=== PATIENT | male | born 1945 | race Caucasian/White ===

== ENCOUNTER 2020-06-21 20:01 | Inpatient (IN) | payer MEDICARE, OTHER ==
[2020-06-21 20:38] LABS: BASOPHILS % (AUTO) 0.2 %; EOSINOPHILS # (AUTO) 0.2 10^3/uL (0.0-0.7); EOSINOPHILS % (AUTO) 0.9 %; HCT - HEMATOCRIT 44.2 % (42.0-52.0); HGB - HEMOGLOBIN 14.8 g/dL (14.0-18.0); LYMPHOCYTES # (AUTO) 0.5 10^3/uL (1.5-3.5); LYMPHOCYTES % (AUTO) 3.3 %; MEAN CORPUSCULAR HGB CONC 33.5 g/dL (32.0-36.0); MEAN CORPUSCULAR VOLUME 95.5 fL (80.0-94.0); MEAN PLATELET VOLUME 10.7 fL (7.4-11.4); MONOCYTES # (AUTO) 1.3 10^3/uL (0.0-1.0); MONOCYTES % (AUTO) 8.1 %; NEUTROPHILS # (AUTO) 14.2 10^3/uL (1.5-6.6); NEUTROPHILS % (AUTO) 87.1 %; PLT - PLATELET COUNT 160 10^3/uL (130-450); RED BLOOD COUNT 4.63 10^6/uL (4.70-6.10); RED CELL DISTRIBUTION WIDTH 11.7 % (12.0-15.0); WHITE BLOOD COUNT 16.3 x10^3/uL (4.8-10.8)
[2020-06-21] MEDS ORDERED: IOVERSOL 320 100 ML VIAL IVP ONE (20:44)
[2020-06-21 20:47] LABS: BILIRUBIN,URINE NEGATIVE (NEGATIVE); GLUCOSE, URINE (UA) NEGATIVE (NEGATIVE); KETONES,URINE (UA) 40 mg/dL (NEGATIVE); LEUKOCYTE ESTERASE, URINE NEGATIVE (NEGATIVE); NITRITE,URINE NEGATIVE (NEGATIVE); OCCULT BLOOD,URINE TRACE-INTA (NEGATIVE); PROTEIN,URINE NEGATIVE (NEGATIVE); UROBILINOGEN,URINE 0.2 (NORMAL) E.U./dL (NORMAL)
[2020-06-21 20:48] LABS: CLARITY,URINE CLEAR (CLEAR)
[2020-06-21 20:50] LABS: ALBUMIN 4.4 g/dL (3.2-5.5); ALBUMIN/GLOBULIN RATIO 1.7 (1.0-2.2); BILIRUBIN,TOTAL 1.1 mg/dL (0.2-1.0); CALCIUM 9.1 mg/dL (8.5-10.3); CREATININE 0.7 mg/dL (0.6-1.2); POTASSIUM 3.8 mmol/L (3.5-5.0)
--- NOTE | 2020-06-21 21:05 | ED Physician Documentation ---
History of Present Illness - Stated complaint Stated Complaint: RIGHT SIDE PX - Chief complaint Chief Complaint: Abd Pain - History obtained from History obtained from: Patient - History of Present Illness Timing: Other (intermittent for several weeks.) Pain level max: 8 Pain level now: 6 - Additonal information Additional information: 75-year-old male presents to the emergency department with intermittent right lower quadrant pain for the past year. He states it has become more painful over the past several days. He does not see a doctor. The pain used to come and go, but is now constant. Nothing makes it better or worse. No fevers. No chills. No nausea or vomiting. Does not have a primary care doctor and does not see doctors often. No diarrhea. No constipation. Review of Systems Ten Systems: 10 systems reviewed and negative Constitutional: denies: Fever, Chills Cardiac: denies: Chest pain / pressure Respiratory: denies: Cough GI: denies: Vomiting, Diarrhea, Hematemesis : denies: Dysuria, Frequency, Hesitancy Skin: denies: Rash Musculoskeletal: denies: Neck pain, Back pain Neurologic: denies: Headache PD PAST MEDICAL HISTORY - Past Medical History Past Medical History: Yes Cardiovascular: None Respiratory: None Neuro: None Endocrine/Autoimmune: None GI: None : Retention, Indwelling catheter HEENT: None Psych: None Musculoskeletal: None Derm: None - Past Surgical History Past Surgical History: Yes HEENT: Tonsil/Adenoidectomy - Present Medications Home Medications: Ambulatory Orders Medication Instructions Recorded Confirmed No Known Home Medications 06/21/20 06/21/20 - Allergies Allergies/Adverse Reactions: Allergies Allergy/AdvReac Type Severity Reaction Status Date / Time No Known Drug Allergies Allergy Verified 06/21/20 20:03 - Social History Does the pt smoke?: No Smoking Status: Never smoker Does the pt drink ETOH?: No Does the pt have substance abuse?: No - Immunizations Immunizations are current?: No Immunizations: Other immun current - POLST Patient has POLST: No PD ED PE NORMAL - Vitals Vital signs reviewed: Yes - General General: Alert and oriented X 3, No acute distress - HEENT HEENT: Moist mucous membranes - Neck Neck: Supple, no meningeal sign - Cardiac Cardiac: RRR - Respiratory Respiratory: No respiratory distress, Clear bilaterally - Abdomen Abdomen: Soft, Other (Tender to palpation right lower quadrant Howard's point without peritoneal signs. Negative Rovsing, obturator and psoas signs) - Back Back: No CVA TTP - Derm Derm: Warm and dry - Extremities Extremities: No edema, No calf tenderness / cord - Neuro Neuro: Alert and oriented X 3 Results - Vitals Vitals: Vital Signs - 24 hr 06/21/20 20:04 Temperature 36.6 C Heart Rate 68 Respiratory 16 Rate Blood Pressure 128/53 L O2 Saturation 100 Oxygen O2 Source Room air - Labs Labs: Laboratory Tests 06/21/20 06/21/20 06/21/20 20:30 20:30 20:38 WBC 16.3 H RBC 4.63 L Hgb 14.8 Hct 44.2 MCV 95.5 H MCH 32.0 H MCHC 33.5 RDW 11.7 L Plt Count 160 MPV 10.7 Neut # (Auto) 14.2 H Lymph # (Auto) 0.5 L [place] # (Auto) 1.3 H Eos # (Auto) 0.2 Baso # (Auto) 0.0 Absolute Nucleated RBC 0.00 Nucleated RBC % 0.0 Sodium 141 Potassium 3.8 Chloride 101 Carbon Dioxide 26 Anion Gap 14.0 H BUN 18 Creatinine 0.7 Estimated GFR (MDRD) 110 Glucose 169 H Calcium 9.1 Total Bilirubin 1.1 H AST 23 ALT 18 Alkaline Phosphatase 77 Total Protein 7.0 Albumin 4.4 Globulin 2.6 Albumin/Globulin Ratio 1.7 Lipase 21 L Urine Color YELLOW Urine Clarity CLEAR Urine pH 6.0 Ur Specific [place] >=1.030 H Urine Protein NEGATIVE Urine Glucose (UA) NEGATIVE Urine Ketones 40 H Urine Occult Blood TRACE-INTA Urine Nitrite NEGATIVE Urine Bilirubin NEGATIVE Urine Urobilinogen 0.2 (NORMAL) Ur Leukocyte Esterase NEGATIVE Ur Microscopic Review NOT INDICATED Urine Culture Comments NOT INDICATED - Rads (name of study) CT abdomen and pelvis Radiology: Prelim report reviewed, EMP read contemporaneously, See rad report (IMPRESSION: No acute finding in the abdomen to explain symptoms. ) PD MEDICAL DECISION MAKING - ED course Complexity details: reviewed results, re-evaluated patient, considered differential, d/w patient, d/w crop consultant ED course: Patient is a 75-year-old male with right lower quadrant abdominal pain. He points to the region where his retrocecal appendix would be found on the CT scan. Does have an appendicolith. On my reading of the CT scan it does appear that the tip of the appendix is inflamed. Possible tip appendicitis versus chronic intermittent appendicitis? Has leukocytosis of 16,000. Discussed the case with Dr. Gould, general surgery on-call. We will place the patient on Zosyn and place the patient in observation for serial exams and reevaluation in the morning. Patient will be kept n.p.o. This document was made in part using voice recognition software. While efforts are made to proofread this document, sound alike and grammatical errors may occu r. Departure - Departure Disposition: ED Place in Observation Clinical Impression: Abdominal pain Qualifiers: Abdominal location: right lower quadrant Qualified Code(s): R10.31 - Right lower quadrant pain Condition: Stable
[2020-06-21] MEDS: IOVERSOL 320 100 ML VIAL IVP ONE (21:19)
--- NOTE | 2020-06-21 21:35 | CT Report ---
PROCEDURE: Abdomen/Pelvis W INDICATIONS: Right-sided abdominal pain CONTRAST: IV CONTRAST: Optiray 320 ml: 100 PO CONTRAST: *NO PO CONTRAST TECHNIQUE: After the administration of intravenous contrast, 5 mm thick sections acquired from the diaphragms to the symphysis. 5 mm thick coronal and sagittal reformats were acquired. For radiation dose reducti on, the following was used: automated exposure control, adjustment of mA and/or kV according to tk ent size. COMPARISON: 04/25/2013 CT abdomen and pelvis. FINDINGS: Image quality: Excellent. ABDOMEN: Lung bases: Lung bases are clear. Heart size is normal. Urinary tract: Casted calculus in the inferior left renal collecting system is unchanged from the hal or study. No associated hydronephrosis. No additional urinary tract calculus. The urinary bladder is decompressed and not well evaluated. Remaining solid abdominal viscera: Normal CT appearance of the liver and spleen. No adrenal gland nod ule or mass demonstrated. Pancreas is within normal limits. Gallbladder is unremarkable. Peritoneum and bowel: No abnormally dilated or thickened loops of bowel. Appendicolith again noted ne ar the base of the appendix with no appendiceal dilatation. No pericolonic or mesenteric fat strandin g. No free fluid or pneumoperitoneum. Nodes and vessels: No retroperitoneal or mesenteric lymphadenopathy by size criteria. Aorta and inf erior vena cava are normal in size. Miscellaneous: No ventral hernias. PELVIS: Genitourinary: Bladder wall thickness is normal. Miscellaneous: No inguinal hernias or pelvic lymphadenopathy. Bones: No suspicious bony lesions. No vertebral body compression fractures. IMPRESSION: No acute finding in the abdomen to explain symptoms. Reviewed by: David Ramey MD on 06/21/2020 9:34 PM PST Approved by: David Ramey MD on 06/21/2020 9:34 PM PST Station ID: [id number]
[2020-06-21] MEDS ORDERED: PIPERACILLIN/TAZOBACTAM 3.375 GM in SODIUM CHLORIDE 0.9% MINIBAG 100 ML IV STA (21:43)
[2020-06-21] MEDS ORDERED: SODIUM CHLORIDE 0.9% 1,000 ML IV STA (22:05)
[2020-06-21] MEDS ORDERED: ONDANSETRON 4 MG/2 ML VIAL IVP PRN (22:34)
[2020-06-21 22:53] LABS: MAGNESIUM 1.7 mg/dL (1.7-2.8); PHOSPHORUS 3.6 mg/dL (2.5-4.6)
[2020-06-21 23:20] LABS: B. PARAPERTUSSIS- RESP PCR PAN NOT DETECTED; B. PERTUSSIS- RESP PCR PANEL NOT DETECTED; C. PNEUMONIAE- RESP PCR PANEL NOT DETECTED; CORONAVIRUS 229E-RESP PCR NOT DETECTED; CORONAVIRUS HKU1-RESP PCR NOT DETECTED; CORONAVIRUS NL63-RESP PCR NOT DETECTED; CORONAVIRUS OC43-RESP PCR NOT DETECTED; HUMAN METAPNEUMOVIRUS NOT DETECTED; INFLUENZA A- RESP PCR PANEL NOT DETECTED; INFLUENZA B - RESP PCR PANEL NOT DETECTED; M. PNEUMONIAE- RESP PCR PANEL NOT DETECTED; PARAINFLUENZA VIRUS 1 NOT DETECTED; PARAINFLUENZA VIRUS 2 NOT DETECTED; PARAINFLUENZA VIRUS 3 NOT DETECTED; PARAINFLUENZA VIRUS 4 NOT DETECTED; RHINOVIRUS/ENTEROVIRUS NOT DETECTED; RSV- RESP PCR PANEL NOT DETECTED; SARS-CoV-2 -RESP PCR PANEL NOT DETECTED
[2020-06-22] MEDS: D5NS W/20 MEQ KCL 1,000 ML IV SCH ×3 (00:22→18:02)
[2020-06-22] MEDS: methocarbamoL 500 MG TABLET PO SCH ×4 (00:23→18:00)
[2020-06-22] MEDS: SODIUM CHLORIDE FLUSH 0.9% 10 ML SYRINGE IVP PRN ×2 (00:25→06:16)
[2020-06-22] MEDS: SODIUM CHLORIDE FLUSH 0.9% 10 ML SYRINGE IVP SCH ×3 (00:25→17:28)
[2020-06-22] MEDS: METOCLOPRAMIDE 10 MG/2 ML VIAL IVP SCH ×4 (00:25→18:00)
[2020-06-22] MEDS: ACETAMINOPHEN 1,000 MG/100 ML 100 ML IV SCH ×4 (00:42→17:28)
[2020-06-22] MEDS: PIPERACILLIN/TAZOBACTAM 3.375 GM in SODIUM CHLORIDE 0.9% MINIBAG 100 ML IV SCH ×4 (03:57→21:50)
[2020-06-22 05:44] LABS: BASOPHILS % (AUTO) 0.3 %; HCT - HEMATOCRIT 38.6 % (42.0-52.0); LYMPHOCYTES # (AUTO) 1.2 10^3/uL (1.5-3.5); MEAN CORPUSCULAR HEMOGLOBIN 31.9 pg (27.0-31.0); MEAN CORPUSCULAR HGB CONC 33.7 g/dL (32.0-36.0); MEAN CORPUSCULAR VOLUME 94.6 fL (80.0-94.0); MEAN PLATELET VOLUME 10.9 fL (7.4-11.4); MONOCYTES % (AUTO) 7.4 %; NEUTROPHILS # (AUTO) 10.9 10^3/uL (1.5-6.6); NEUTROPHILS % (AUTO) 82.8 %; PLT - PLATELET COUNT 147 10^3/uL (130-450); RED BLOOD COUNT 4.08 10^6/uL (4.70-6.10); RED CELL DISTRIBUTION WIDTH 11.7 % (12.0-15.0); WHITE BLOOD COUNT 13.2 x10^3/uL (4.8-10.8)
[2020-06-22 06:02] LABS: ALBUMIN 3.5 g/dL (3.2-5.5); ALBUMIN/GLOBULIN RATIO 1.6 (1.0-2.2); BILIRUBIN,TOTAL 1.4 mg/dL (0.2-1.0); CALCIUM 8.6 mg/dL (8.5-10.3); CREATININE 0.8 mg/dL (0.6-1.2); MAGNESIUM 1.8 mg/dL (1.7-2.8); PHOSPHORUS 2.9 mg/dL (2.5-4.6); POTASSIUM 3.8 mmol/L (3.5-5.0); TOTAL PROTEIN 5.7 g/dL (6.7-8.2)
[2020-06-22] MEDS: HEPARIN 5,000 UNIT/ML VIAL SUBQ SCH ×3 (06:14→21:50)
--- NOTE | 2020-06-22 08:06 | SURGERY HX AND PHYSICAL(T) ---
Surgical History & Physical - Chief Complaint/HPI Chief Complaint: Right lower quadrant abdominal pain History of Present Illness: 75-year-old male who has not had any regular medical follow-up for several years and who has not undergone any screening colonoscopy during his lifetime presents with a several day history of right lower quadrant pain and associated malaise. CT scan was equivocal however he had leukocytosis and clinical presentation consistent with appendicitis with periumbilical pain migrating to the right lower quadrant. Surgical consultation was called. Patient was admitted for observation with IV antibiotics and serial exams. Patient was explained of the possibility to undergo operative intervention, and he remained resistant to any surgical procedure. He is strongly in favor of "homeopathic" measures. He has had no prior abdominal surgery and has no chronic medical conditions. - PMH/PSH/Social Hx Does the pt have a hx of MRSA?: No Neurological History: None Eyes, Ears, Nose, Throat: None Cardiovascular: None Respiratory: None Skin: None Endocrine/Autoimmune: None Gastrointestinal: None Urinary: Retention, Indwelling catheter Musculoskeletal: None Blood Disorders: None Psychiatric: None Eyes Ears Nose Throat (EENT): Tonsil/Adenoidectomy Smoking Status: Never smoker Does the pt drink ETOH?: No Does the pt have substance abuse?: No - Home Meds and Allergies Home Medications: No Known Home Medications 06/21/20 Allergies/Adverse Reactions: Allergies Allergy/AdvReac Type Severity Reaction Status Date / Time No Known Drug Allergies Allergy Verified 06/21/20 20:03 - Review of Systems Constitutional: Malaise Gastrointestinal: Abdominal pain - Vital Signs Heart Rate: 68 Blood Pressure: 128/53 Temperature: 36.7 C Respiratory Rate: 16 O2 Saturation: 96 Weight (kg): 66.5 kg Height: 1.8 m - Physical Exam General Appearance: positive: No acute distress, Alert Eyes Bilatera: positive: Normal inspection, PERRL, EOMI ENT: positive: ENT inspection nml Neck: positive: Nml inspection Respiratory: positive: Chest non-tender Cardiovascular: positive: Regular rate & rhythm Abdomen: positive: Tenderness, Guarding, Rebound, Other (Positive tenderness to palpation in the right lower quadrant with associated localized rebound and guarding.) Skin: positive: Color nml Extremities: positive: Non-tender, Full ROM, Nml appearance Neurologic/Psychiatric: positive: Oriented x3, CN's nml (2-12), Motor nml, Sensation nml, Mood/affect nml, Disoriented to person - Patient Review Patient Review: Problems were reviewed with the patient during this visit. Medications were reviewed with the patient during this visit. Allergies were reviewed this patient during this visit. Pertinent Tests Reviewed: All pertitent test for this patient were reviewed. - Assessment & Plan Assessment and Plan: 75-year-old male with worsening right lower quadrant pain over the last several days. Patient presents with leukocytosis. Initial CT was without any acute concerning changes however have discussed with radiology the prospect of a large retrocecal appendix associated appendicolith and appendiceal dilatation compared to historic study. Differential includes acute on chronic appendicitis with possibility of mucinous neoplasm of the appendix amongst others. Patient remains hesitant as it relates to operative intervention and is eager for "homeopathic" interventions. A great deal of time was spent explaining to the patient the risks of associated perforation especially in the setting of a neoplastic process; also as it relates to perforation of a inflamed obstructed appendix with resultant peritonitis was discussed as well. Will repeat imaging after discussion with radiology. 1. Bowel rest, IV fluid resuscitation, IV antibiotics. 2. Preoperative chest x-ray, preoperative EKG, labs evaluated. 3. Ultimately will recommend diagnostic laparoscopy, laparoscopic appendectomy, other indicated procedures. Patient counseled of the risk associated with operative intervention including but not limited to conversion to open procedure, injury to local structures, and anesthesia risks of heart attack, stroke, . 4. If patient remains refractory and reticent and indeed has clear evidence of appendicitis, we could continue antibiotics however I would strongly recommend proceeding with appendectomy and it appears the patient may refuse this and act AGAINST MEDICAL ADVICE. We will reevaluate this later today. 4. Postoperative care under observation status with continued IV antibiotics. Impression CT abdomen pelvis June 21, 2020: Per the final read no finding in the abdomen to explain symptoms. However my read of the CAT scan and discussion further with radiology broadened to question a possible retrocecal appendix with appendicolith. We will proceed with repeat imaging interval noncontrast CT abdomen pelvis. This was discussed with Dr. David Ramey from radiology.
[2020-06-22] MEDS: DOCUSATE SODIUM 100 MG CAPSULE PO SCH ×2 (08:30→21:50)
[2020-06-22] MEDS: polyethylene glycoL 3350 17 GM PACKET PO SCH ×2 (08:30→21:50)
[2020-06-22] MEDS ORDERED: IOVERSOL 320 100 ML VIAL IVP ONE (10:37)
--- NOTE | 2020-06-22 11:46 | PHARMACY PROGRESS NOTE ---
- Best Possible Medication History Admit Date and Time: 06/21/20 4559 Processed by: Pharmacy Medication History completed: Yes Patient Interview: Completed Secondary Source(s): Physician records, Pharmacy records, Insurance records (PATIENT INTERVIEWED BY [employer]. PATIENT DOES NOT TAKE RX MEDICATIONS ) As the person ultimately responsible for medication therapy, providers are able to order a medication from an existing home medication list in [facility] via the "Reconcile Routine" prior to Confirmation of that medication by it support engineer. Such practice is discouraged except when the physician, in their clinical judgment, deems that a medical need exists for a medication without regard to previous use.
--- NOTE | 2020-06-22 13:03 | CT Report ---
PROCEDURE: Abdomen/Pelvis W INDICATIONS: comparative follow up, appendicitis CONTRAST: IV CONTRAST: Optiray 320 ml: 100 PO CONTRAST: *NO PO CONTRAST TECHNIQUE: After the administration of intravenous contrast, 5 mm thick sections acquired from the diaphragms to the symphysis. 5 mm thick coronal and sagittal reformats were acquired. For radiation dose reducti on, the following was used: automated exposure control, adjustment of mA and/or kV according to tk ent size. COMPARISON: 06/21/2020 CT abdomen and pelvis FINDINGS: Image quality: Excellent. ABDOMEN: Lung bases: Lung bases are clear. Heart size is normal. Solid organs: Liver and spleen are normal in size and enhancement. Gallbladder is normal Biliary s ystem is non dilated. Pancreas enhances normally. No adrenal nodules. Kidneys demonstrate normal s ize and enhancement, without hydronephrosis. Peritoneum and bowel: The appendix is retrocecal and projects superiorly from the base of the cecum a long the right paracolic gutter. Appendix is enlarged measuring approximately 1 cm in diameter, simil ar to the prior study. There is significantly increased fluid surrounding the appendix, along with ne w fat stranding. Also new from the prior study is wall thickening and mucosal hyperenhancement. An ap pendicolith at the base of the appendix is redemonstrated. Nodes and vessels: No retroperitoneal or mesenteric adenopathy by size criteria. Aorta and inferior vena cava are normal in size. Miscellaneous: No ventral hernias. PELVIS: Genitourinary: Bladder wall thickness is normal. Miscellaneous: No inguinal hernias or adenopathy. Bones: No suspicious bony lesions. No vertebral body compression fractures. IMPRESSION: Interval development of increased free fluid surrounding the dilated/enlarged appendix, now with new mucosal hyperenhancement. Findings are consistent with acute appendicitis. Findings were discussed with Dr. Gould at 1:00 PM on 06/22/2020. Reviewed by: David Ramey MD on 06/22/2020 1:02 PM PST Approved by: David Ramey MD on 06/22/2020 1:02 PM PST Station ID: [id number]
[2020-06-22] MEDS: IOVERSOL 320 100 ML VIAL IVP ONE (13:30)
--- NOTE | 2020-06-22 18:30 | PROVIDER PROGRESS NOTE ---
Progress Note Subjective Hospital day #3 admitted for abdominal pain. Patient has initially been reticent about any operative intervention. Underwent repeat CT imaging without contrast yesterday given equivocal findings of appendicitis on emergency room CT study. Persistent right lower quadrant pain. Remains n.p.o. Has agreed to proceed with operative intervention. Objective Afebrile hemodynamically acceptable General Appearance: positive: No acute distress Eyes Bilateral: positive: Normal inspection ENT: positive: ENT inspection nml Neck: positive: Nml inspection Respiratory: positive: Chest non-tender, No respiratory distress, Breath sounds nml. negative: Wheezes, Rales, Rhonchi Cardiovascular: positive: Regular rate & rhythm Abdomen: positive: No distention, Other. Positive right lower quadrant pain with localized rebound and guarding Extremities: positive: Non-tender, Full ROM, Nml appearance Neurologic/Psychiatric: positive: Oriented x3, CN's nml (2-12) CT abdomen pelvis June 22 impression noncontrast: 1. Interval development of signs no worrisome for acute appendicitis 2. Increased periappendiceal fluid and wall thickening; dilated appendix to 1 cm consistent with historic exam 3. This was discussed with the radiologist which in review of initial study is now consistent with acute worsening appendicitis Impression/Plan 75-year-old male with acute appendicitis, hospital day #3. Initially refusing operative intervention and now in agreement having perforated informed consent. Plan operative intervention this a.m. with diagnostic laparoscopy and laparoscopic appendectomy. We will keep the patient postoperatively for pain control continued IV antibiotics and any further care pending intraoperative findings. (1) GI - IVF, n.p.o.. GI ppx. [Anticipate ileus]. Opiate sparring analgesia. (2) SURGERY -diagnostic laparoscopy, laparoscopic and appendectomy, and other indicated procedures. (3) Renal/Lytes - continue IVF. Renal indices within normal limits. (4) Respiratory - O2 as necessary. Continue IS. (5) Heme - Will continue with DVT ppx. H/H stable. (6) Cardiovascular - HD acceptable. (7) Neuro - Opiate sparring analgesia. Antispasmodics with Robaxin. [Toradol]. Neuropathic agents. (8) Immune/Infectious Disease - continue with IV antibiotics with Zosyn..
[2020-06-22] MEDS ORDERED: ACETAMINOPHEN 500 MG TABLET PO PRN (23:00)
[2020-06-23] MEDS: SODIUM CHLORIDE FLUSH 0.9% 10 ML SYRINGE IVP SCH ×3 (01:01→16:50)
[2020-06-23] MEDS: METOCLOPRAMIDE 10 MG/2 ML VIAL IVP SCH ×2 (01:01→06:20)
[2020-06-23] MEDS: methocarbamoL 500 MG TABLET PO SCH ×2 (01:07→06:20)
[2020-06-23] MEDS: D5NS W/20 MEQ KCL 1,000 ML IV SCH ×2 (02:08→13:50)
[2020-06-23] MEDS: PIPERACILLIN/TAZOBACTAM 3.375 GM in SODIUM CHLORIDE 0.9% MINIBAG 100 ML IV SCH ×3 (03:49→16:16)
[2020-06-23 05:49] LABS: BASOPHILS # (AUTO) 0.1 10^3/uL (0.0-0.1); BASOPHILS % (AUTO) 0.6 %; EOSINOPHILS % (AUTO) 0.2 %; HCT - HEMATOCRIT 35.3 % (42.0-52.0); HGB - HEMOGLOBIN 11.9 g/dL (14.0-18.0); LYMPHOCYTES # (AUTO) 0.9 10^3/uL (1.5-3.5); LYMPHOCYTES % (AUTO) 10.1 %; MEAN CORPUSCULAR HEMOGLOBIN 32.3 pg (27.0-31.0); MEAN CORPUSCULAR HGB CONC 33.7 g/dL (32.0-36.0); MEAN CORPUSCULAR VOLUME 95.9 fL (80.0-94.0); MEAN PLATELET VOLUME 11.6 fL (7.4-11.4); MONOCYTES # (AUTO) 0.8 10^3/uL (0.0-1.0); MONOCYTES % (AUTO) 9.2 %; NEUTROPHILS # (AUTO) 6.7 10^3/uL (1.5-6.6); NEUTROPHILS % (AUTO) 79.5 %; PLT - PLATELET COUNT 133 10^3/uL (130-450); RED BLOOD COUNT 3.68 10^6/uL (4.70-6.10); RED CELL DISTRIBUTION WIDTH 11.7 % (12.0-15.0); WHITE BLOOD COUNT 8.5 x10^3/uL (4.8-10.8)
[2020-06-23 05:57] LABS: ALBUMIN/GLOBULIN RATIO 1.3 (1.0-2.2); BILIRUBIN,TOTAL 0.9 mg/dL (0.2-1.0); CALCIUM 8.2 mg/dL (8.5-10.3); CREATININE 0.6 mg/dL (0.6-1.2); MAGNESIUM 1.9 mg/dL (1.7-2.8); PHOSPHORUS 2.1 mg/dL (2.5-4.6); POTASSIUM 3.6 mmol/L (3.5-5.0); TOTAL PROTEIN 5.3 g/dL (6.7-8.2)
[2020-06-23] MEDS: SODIUM CHLORIDE FLUSH 0.9% 10 ML SYRINGE IVP PRN (06:21)
[2020-06-23] MEDS: HEPARIN 5,000 UNIT/ML VIAL SUBQ SCH ×2 (06:57→13:50)
[2020-06-23] MEDS ORDERED: BUPIVACAINE 0.5% PF 30 ML VIAL ONE (07:09)
[2020-06-23] MEDS ORDERED: LIDOCAINE 2%-EPI 1:100000 20 ML MDV ONE (07:09)
[2020-06-23] MEDS ORDERED: ATROPINE ABBOJECT 1 MG/10 ML SYRINGE IVP PRN (07:14)
[2020-06-23] MEDS ORDERED: MORPHINE 2 MG/ML CARPUJECT IVP PRN (07:14)
[2020-06-23] MEDS ORDERED: METOCLOPRAMIDE 10 MG/2 ML VIAL IVP PRN (07:14)
[2020-06-23] MEDS ORDERED: NALOXONE 0.4 MG/ML VIAL IVP PRN (07:14)
[2020-06-23] MEDS ORDERED: ePHEDrine 50 MG/ML VIAL IVP PRN (07:14)
[2020-06-23] MEDS ORDERED: fentaNYL 100 MCG/2 ML VIAL IVP PRN (07:14)
[2020-06-23] MEDS ORDERED: ONDANSETRON 4 MG/2 ML VIAL IVP PRN ×2 (07:14→09:34)
[2020-06-23] MEDS ORDERED: HYDROmorphone 0.5 MG/0.5 ML SYRINGE IVP PRN (07:14)
--- NOTE | 2020-06-23 07:14 | ANESTHESIA ---
Pre-Anesthesia VS, & Labs - Diagnosis RLQ pain - Procedure diagnostic laparoscopy Vital Signs: Temp Pulse Resp BP Pulse Ox 36.7 C 96 17 113/42 L 96 06/23/20 04:18 06/23/20 04:18 06/23/20 04:18 06/23/20 04:18 06/23/20 04:18 Height: 5 ft 11 in Weight (kg): 66.5 kg Body Mass Index: 20.4 BMI Classification: Healthy weight - NPO >8 hours - Lab Results Current Lab Results: Laboratory Tests 06/23/20 04:00: Sodium 145, Potassium 3.6, Chloride 110, Carbon Dioxide 26, Anion Gap 9.0, BUN 15, Creatinine 0.6, Estimated GFR (MDRD) 131, Glucose 111 H, Calcium 8.2 L, Phosphorus 2.1 L, Magnesium 1.9, Total Bilirubin 0.9, AST 63 H, ALT 20, Alkaline Phosphatase 49, Total Protein 5.3 L, Albumin 3.0 L, Globulin 2.3, Albumin/Globulin Ratio 1.3 06/23/20 04:00: WBC 8.5, RBC 3.68 L, Hgb 11.9 L, Hct 35.3 L, MCV 95.9 H, MCH 32.3 H, MCHC 33.7, RDW 11.7 L, Plt Count 133, MPV 11.6 H, Neut # (Auto) 6.7 H, Lymph # (Auto) 0.9 L, [place] # (Auto) 0.8, Eos # (Auto) 0.0, Baso # (Auto) 0.1, Absolute Nucleated RBC 0.00, Nucleated RBC % 0.0 06/22/20 05:30: Sodium 140, Potassium 3.8, Chloride 103, Carbon Dioxide 28, Anion Gap 9.0, BUN 17, Creatinine 0.8, Estimated GFR (MDRD) 94, Glucose 137 H, Calcium 8.6, Phosphorus 2.9, Magnesium 1.8, Total Bilirubin 1.4 H, AST 26, ALT 14, Alkaline Phosphatase 56, Total Protein 5.7 L, Albumin 3.5, Globulin 2.2, Albumin/Globulin Ratio 1.6 06/22/20 05:30: WBC 13.2 H, RBC 4.08 L, Hgb 13.0 L, Hct 38.6 L, MCV 94.6 H, MCH 31.9 H, MCHC 33.7, RDW 11.7 L, Plt Count 147, MPV 10.9, Neut # (Auto) 10.9 H, Lymph # (Auto) 1.2 L, [place] # (Auto) 1.0, Eos # (Auto) 0.0, Baso # (Auto) 0.0, Absolute Nucleated RBC 0.00, Nucleated RBC % 0.0 06/21/20 21:40: Phosphorus 3.6, Magnesium 1.7 06/21/20 20:30: Sodium 141, Potassium 3.8, Chloride 101, Carbon Dioxide 26, Anion Gap 14.0 H, BUN 18, Creatinine 0.7, Estimated GFR (MDRD) 110, Glucose 169 H, Calcium 9.1, Total Bilirubin 1.1 H, AST 23, ALT 18, Alkaline Phosphatase 77, Total Protein 7.0, Albumin 4.4, Globulin 2.6, Albumin/Globulin Ratio 1.7, Lipase 21 L 06/21/20 20:30: WBC 16.3 H, RBC 4.63 L, Hgb 14.8, Hct 44.2, MCV 95.5 H, MCH 32.0 H, MCHC 33.5, RDW 11.7 L, Plt Count 160, MPV 10.7, Neut # (Auto) 14.2 H, Lymph # (Auto) 0.5 L, [place] # (Auto) 1.3 H, Eos # (Auto) 0.2, Baso # (Auto) 0.0, Absolute Nucleated RBC 0.00, Nucleated RBC % 0.0 Lab results reviewed: Yes Fish Bones: 06/23/20 04:00 06/23/20 04:00 Home Medications and Allergies Home Medications: Ambulatory Orders No Known Home Medications 06/21/20 Active Medications Acetaminophen (Acetaminophen 500 Mg Tablet) 500 mg PO Q4HR PRN PRN Reason: Pain or Fever > 38C (100.4F) Docusate Sodium (Docusate Sodium 100 Mg Capsule) 100 mg PO BID [facility] Last Admin: 06/22/20 21:50 Dose: Not Given Documented by: Heparin Sodium (Porcine) (Heparin 5,000 Unit/Ml Vial) 5,000 unit SUBQ TID [facility] Last Admin: 06/23/20 06:57 Dose: Not Given Documented by: Potassium Chloride/Dextrose/Sod Cl () 1,000 mls @ 125 mls/hr IV .Q8H [facility] Last Infusion: 06/23/20 04:19 Dose: 125 mls/hr Documented by: Piperacillin Sod/Tazobactam (Sod 3.375 gm/ Sodium Chloride) 100 mls @ 200 mls/hr IV Q6H [facility] Last Infusion: 06/23/20 04:19 Dose: Infused Documented by: Methocarbamol (Methocarbamol 500 Mg Tablet) 500 mg PO Q6HR [facility] Last Admin: 06/23/20 06:20 Dose: 500 mg Documented by: Metoclopramide HCl (Metoclopramide 10 Mg/2 Ml Vial) 10 mg IVP Q6HR [facility] Last Admin: 06/23/20 06:20 Dose: 10 mg Documented by: Ondansetron HCl (Ondansetron 4 Mg/2 Ml Vial) 4 mg IVP Q6HR PRN PRN Reason: Nausea / Vomiting Polyethylene Glycol (Polyethylene Glycol 3350 17 Gm Packet) 17 gm PO BID [facility] Last Admin: 06/22/20 21:50 Dose: Not Given Documented by: Sodium Chloride (Sodium Chloride Flush 0.9% 10 Ml Syringe) 10 ml IVP 0100,0900,1700 [facility] Last Admin: 06/23/20 01:01 Dose: 10 ml Documented by: Sodium Chloride (Sodium Chloride Flush 0.9% 10 Ml Syringe) 10 ml IVP PRN PRN PRN Reason: NEEDED PER PROVIDER ORDERS Last Admin: 06/23/20 06:21 Dose: 10 ml Documented by: No Known Home Medications 06/21/20 Allergies/Adverse Reactions: Allergies Allergy/AdvReac Type Severity Reaction Status Date / Time No Known Drug Allergies Allergy Verified 06/21/20 20:03 Anes History & Medical History - Anesthetic History Anesthesia Complications: reports: No previous complications Family history of Anesthesia Complications: Denies Family history of Malignant Hyperthermia: Denies - Medical History Cardiovascular: reports: None Pulmonary: reports: None Gastrointestinal: reports: None Urinary: reports: Retention, Indwelling catheter Neuro: reports: None Musculoskeletal: reports: None Endocrine/Autoimmune: reports: None Blood Disorders: reports: None Skin: reports: None Smoking Status: Never smoker - Surgical History Eyes Ears Nose Throat (EENT): Tonsil/Adenoidectomy Exam General: Alert, Oriented x3, Cooperative, No acute distress Dental: WNL Mouth Openin Fingerbreadth Neck Mobility: Normal Mallampati classification: II Respiratory: Lungs clear, Normal breath sounds, No respiratory distress, No accessory muscle use Cardiovascular: Regular rate, Normal S1, Normal S2, No murmurs Plan Anesthesia Type: General Consent for Procedure(s) Verified and Reviewed: Yes Code Status: Attempt Resuscitation ASA classification: 2-Mild systemic disease Is this case an emergency?: No
[2020-06-23] MEDS ORDERED: LIDOCAINE-MPF 2% 5 ML VIAL ONE (07:32)
[2020-06-23] MEDS ORDERED: PROPOFOL 200 MG/20 ML VIAL IVP ONE (07:32)
[2020-06-23] MEDS ORDERED: ROCURONIUM 50 MG/5 ML VIAL ONE (07:33)
[2020-06-23] MEDS ORDERED: MIDAZOLAM 2 MG/2 ML VIAL ONE (07:36)
[2020-06-23] MEDS ORDERED: LACTATED RINGERS 1,000 ML IV SCH (08:00)
[2020-06-23] MEDS ORDERED: SUCCINYLCHOLINE 200 MG/10 ML VIAL ONE (08:20)
[2020-06-23] MEDS ORDERED: BUPIVACAINE 0.5% PF 30 ML VIAL INFIL ONE ×2 (08:23→09:00)
[2020-06-23] MEDS ORDERED: LIDOCAINE 2%-EPI 1:100000 20 ML MDV SUBQ ONE ×2 (08:24→09:00)
[2020-06-23] MEDS ORDERED: GLYCOPYRROLATE 1 MG/5 ML VIAL ONE (08:41)
[2020-06-23] MEDS ORDERED: ONDANSETRON 4 MG/2 ML VIAL ONE (09:01)
[2020-06-23] MEDS ORDERED: NEOSTIGMINE 1 MG/1 ML 10 ML MDV ONE (09:04)
--- NOTE | 2020-06-23 09:31 | OPERATIVE REPORT ---
Operative Report - General Admit Date: 06/21/20 Procedure Date: 06/23/20 Planned Procedure: 1. Diagnostic laparoscopy 2. Laparoscopic appendectomy 3. Other indicated procedures Pre-Op Diagnosis: Appendicitis; abdominal pain; failure of medical management. Procedure Performed: 1. Diagnostic laparoscopy 2. Laparoscopic appendectomy 3. Extensive lysis of adhesions 4. Abdominal washout 5. Open umbilical hernia repair Post Op Diagnosis: Same; suppurative appendicitis; umbilical hernia; abdominal adhesions - Procedure Note Primary Surgeon: Bryanna Secondary Surgeon: Jared Anesthesia Provider: Ronald Branch Anesthesia Technique: General ET tube, Local Pathology: Appendix Indications: 1. Clinical presentation with acute appendicitis 2. Patient initially reticent and refusing operative intervention 3. Interval CT scan showing worsening radiographic findings consistent with appendicitis 4. Failure of medical management Findings: 1. Suppurative nonperforated appendicitis 2. Umbilical hernia 3. Abdominal adhesions 4. No obvious feculent nor purulent peritonitis Complications: NONE - Other Other Information/Narrative: Final report pending
[2020-06-23] MEDS ORDERED: LACTATED RINGERS 1,000 ML IV ONE (09:34)
[2020-06-23] MEDS ORDERED: oxyCODONE 5 MG TABLET PO PRN (09:34)
--- NOTE | 2020-06-23 09:47 | ANESTHESIA POST OP EVALUATION ---
Anesthesia Post Eval - Post Anesthesia Eval Vitals: Last Vital Signs Temp 36.6 C 06/23/20 09:35 Pulse 73 06/23/20 09:35 Resp 18 06/23/20 09:35 BP 138/62 H 06/23/20 09:35 Pulse Ox 95 06/23/20 09:35 CV Function Including HR & BP: positive: Stable Pain Control: positive: Satisfactory Nausea & Vomiting: positive: Negative Mental Status: positive: Baseline Respiratory Status: Airway Patent Hydration Status: Satisfactory Anesthesia Complications: positive: None
[2020-06-23] MEDS ORDERED: ACETAMINOPHEN 1,000 MG/100 ML 100 ML IV SCH (12:00)
[2020-06-23] MEDS ORDERED: METOCLOPRAMIDE 10 MG/2 ML VIAL IVP SCH (12:00)
[2020-06-23] MEDS ORDERED: KETOROLAC 30 MG/ML VIAL IVP SCH (12:00)
[2020-06-23] MEDS ORDERED: methocarbamoL 500 MG TABLET PO SCH (12:00)
[2020-06-23 16:41] VITALS: BP 128/55
--- NOTE | 2020-06-23 18:17 | DISCHARGE SUMMARY ---
Discharge Summary Admit Date: 06/21/20 Discharge Date: 06/23/20 Discharging Provider: Bryanna Code Status: Attempt Resuscitation Condition at Discharge: Good Discharge Disposition: 01 Home, Self Care - DIAGNOSES Admission Diagnoses: 1. Appendicitis, presumptive/equivocal by initial CT 2. Abdominal pain 3. Failure of medical management. 4. Suppurative appendicitis 5. Umbilical hernia 6. Abdominal adhesions Discharge Diagnoses with Status of Each Condition: 1. Appendicitis, CONFIRMED - RESOLVED 2. Abdominal pain - RESOLVED 3. Failure of medical management - RESOLVED 4. Suppurative appendicitis - RESOLVED 5. Umbilical hernia - RESOLVED 6. Abdominal adhesions - RESOLVED - HPI History of Present Illness: 75-year-old male who has not had any regular medical follow-up for several years and who has not undergone any screening colonoscopy during his lifetime presents with a several day history of right lower quadrant pain and associated malaise. CT scan was equivocal however he had leukocytosis and clinical presentation consistent with appendicitis with periumbilical pain migrating to the right lower quadrant. Surgical consultation was called. Patient was admitted for observation with IV antibiotics and serial exams. Patient was explained of the possibility to undergo operative intervention, and he remained resistant to any surgical procedure. He is strongly in favor of "homeopathic" measures. He has had no prior abdominal surgery and has no chronic medical conditions. - CONSULTS | PROCEDURES Consultations: NONE Procedures: Pre-Op Diagnosis: Appendicitis; abdominal pain; failure of medical management. Procedure Performed: 1. Diagnostic laparoscopy 2. Laparoscopic appendectomy 3. Extensive lysis of adhesions 4. Abdominal washout 5. Open umbilical hernia repair Post Op Diagnosis: Same; suppurative appendicitis; umbilical hernia; abdominal adhesions - HOSPITAL COURSE Hospital Course: 75-year-old male with worsening right lower quadrant pain over the last several days. Patient presents with leukocytosis. Initial CT was without any acute concerning changes however have discussed with radiology the prospect of a large retrocecal appendix associated appendicolith and appendiceal dilatation compared to historic study. Differential includes acute on chronic appendicitis with possibility of mucinous neoplasm of the appendix amongst others. Patient remains hesitant as it relates to operative intervention and is eager for "homeopathic" interventions. A great deal of time was spent explaining to the patient the risks of associated perforation especially in the setting of a neoplastic process; also as it relates to perforation of a inflamed obstructed appendix with resultant peritonitis was discussed as well. Will repeat imaging after discussion with radiology. 1. Bowel rest, IV fluid resuscitation, IV antibiotics. 2. Preoperative chest x-ray, preoperative EKG, labs evaluated. 3. Ultimately will recommend diagnostic laparoscopy, laparoscopic appendectomy, other indicated procedures. Patient counseled of the risk associated with operative intervention including but not limited to conversion to open procedure, injury to local structures, and anesthesia risks of heart attack, stroke, . 4. If patient remains refractory and reticent and indeed has clear evidence of appendicitis, we could continue antibiotics however I would strongly recommend proceeding with appendectomy and it appears the patient may refuse this and act AGAINST MEDICAL ADVICE. We will reevaluate this later today. 4. Postoperative care under observation status with continued IV antibiotics. Impression CT abdomen pelvis June 21, 2020: Per the final read no finding in the abdomen to explain symptoms. However my read of the CAT scan and discussion further with radiology broadened to question a possible retrocecal appendix with appendicolith. We will proceed with repeat imaging interval noncontrast CT abdomen pelvis. This was discussed with Dr. David Ramey from radiology. 75-year-old male with acute appendicitis, hospital day #3. Initially refusing operative intervention and now in agreement having perforated informed consent. Plan operative intervention this a.m. with diagnostic laparoscopy and laparoscopic appendectomy. We will keep the patient postoperatively for pain control continued IV antibiotics and any further care pending intraoperative findings. Postoperatively the patient was managed for postoperative analgesia and resumption of bowel function. Patient had successfully passed trial of void. Tolerated oral intake without any complication. Denied nausea denied vomiting. Was advanced for diet without any complication. Was counseled that given evidence of suppuration in the setting of the patient's acute appendicitis would recommend continued antibiotics for 2 weeks; patient was maintained on antibiotics during the hospital stay. Discharge instructions given. Analgesia with oxycodone provided at time of discharge. Patient plan for follow-up and will be notified of pathology once returned. - ALLERGIES Allergies/Adverse Reactions: Allergies Allergy/AdvReac Type Severity Reaction Status Date / Time No Known Drug Allergies Allergy Verified 06/21/20 20:03 - MEDICATIONS Home Medications: Ambulatory Orders Medication Instructions Recorded Confirmed Amox/Clav 875/125 [Augmentin] 1 each PO Q12H #20 tablet 06/23/20 Docusate Sodium 100Mg Capsule 100 mg PO BID capsule 06/23/20 [Colace 100Mg Capsule] oxyCODONE [Roxicodone] 5 mg PO Q4HR PRN #20 tablet 06/23/20 polyethylene glycoL 3350 [Miralax] 17 gm PO BID packet 06/23/20 - PHYSICAL EXAM AT DISCHARGE General Appearance: positive: No acute distress, Alert Eyes Bilateral: positive: Normal inspection, PERRL, EOMI ENT: positive: ENT inspection nml Neck: positive: Nml inspection Respiratory: positive: Chest non-tender Cardiovascular: positive: Regular rate & rhythm Peripheral Pulses: positive: 1+ (clean dry and intact.) Abdomen: positive: Other (Soft, appropriately tender, no rebound, no guarding. Dressings clean dry and intact.) Rectal: positive: Non-tender - LABS Result Diagrams: 06/23/20 04:00 06/23/20 04:00 - SEPSIS Current Stage of Sepsis: Ruled out - FOLLOW UP Follow Up: Impression/Plan 1. Complete course of antibiotics for total of 10 days outpatient oral. 2. Antibiotics will be Augmentin twice daily; patient will take probiotic as well. 3. Patient to also follow-up in surgery clinic for staple removal. 4. Patient to call or return to the hospital through ER for fevers, nausea, vomiting, abdominal pain or any other worrisome symptoms or concerns. 5. Patient not to return to any work capacity until seen in clinic. 6. Appropriate for discharge at this time. Additional Instructions or Follow Up instructions: DISCHARGE INSTRUCTIONS TEMPLATE: No heavy lifting, pushing, or pulling. Stairs are allowed, no strenuous/exertional activities. 5-10lbs weight carrying limit (i.e. gallon of milk) If provided, abdominal binder while out of bed and while ambulating. Call or proceed to clinic/ER for fevers, severe pain, nausea, vomiting, inability to pass flatus/stool, bleeding, wound redness/discharge, weakness, excessively loose stool/diarrhea, or for any other reasonably worrisome symptom or concern. Soft diet, no raw vegetables, avoid high fiber foods. Colace 100mg by mouth twice to three times daily while taking narcotic pain medication. If no bowel movement in 24-48hr, may take 17g Miralax in 8oz water twice daily until bowel movement. May shower, no submersive bathing. Follow up in clinic in 2-4 weeks for wound check and staple removal. No driving while taking narcotic pain medications. Follow up with primary care provider and/or medical subspecialist following discharge as well. Complete course of antibiotics as instructed. - TIME SPENT Time Spent in Discharge (Minutes): 45
--- NOTE | 2020-06-23 18:17 | Discharge Plan ---
Discharge Plan Problem Reviewed?: Yes Disposition: Home, Self Care Condition: Good Prescriptions: oxyCODONE [Roxicodone] 5 mg PO Q4HR PRN #20 tablet PRN Reason: Pain Amox/Clav 875/125 [Augmentin] 1 each PO Q12H #20 tablet Diet: Soft Activity Restrictions: No Restrictions Shower Restrictions: No Driving Restrictions: Yes (No driving while taking narcotics) Weight Bearing: Full Weight Instruction Topics: Appendectomy, Appendicitis, Hernia Surg Plan of Treatment: Plan of Treatment: 1. Complete course of antibiotics for total of 10 days outpatient oral. 2. Antibiotics will be Augmentin twice daily; patient will take probiotic as well. 3. Patient to also follow-up in surgery clinic for staple removal. 4. Patient to call or return to the hospital through ER for fevers, nausea, vomiting, abdominal pain or any other worrisome symptoms or concerns. 5. Patient not to return to any work capacity until seen in clinic. Assessment: Subjective Doing well. Tolerating diet. No nausea. No vomiting. Objective Afebrile hemodynamically acceptable General Appearance: positive: No acute distress Eyes Bilateral: positive: Normal inspection ENT: positive: ENT inspection nml Neck: positive: Nml inspection Respiratory: positive: Chest non-tender, No respiratory distress, Breath sounds nml. negative: Wheezes, Rales, Rhonchi Cardiovascular: positive: Regular rate & rhythm Abdomen: positive: No distention, Other. negative: Guarding, Rebound Extremities: positive: Non-tender, Full ROM, Nml appearance Neurologic/Psychiatric: positive: Oriented x3, CN's nml (2-12) Abdomen soft nondistended no rebound no guarding appropriately tender with wound clean dry intact Impression/Plan 1. Complete course of antibiotics for total of 10 days outpatient oral. 2. Antibiotics will be Augmentin twice daily; patient will take probiotic as well. 3. Patient to also follow-up in surgery clinic for staple removal. 4. Patient to call or return to the hospital through ER for fevers, nausea, vomiting, abdominal pain or any other worrisome symptoms or concerns. 5. Patient not to return to any work capacity until seen in clinic. 6. Appropriate for discharge at this time. Additional Instructions or Follow Up instructions: DISCHARGE INSTRUCTIONS TEMPLATE: No heavy lifting, pushing, or pulling. Stairs are allowed, no strenuous/exertional activities. 5-10lbs weight carrying limit (i.e. gallon of milk) If provided, abdominal binder while out of bed and while ambulating. Call or proceed to clinic/ER for fevers, severe pain, nausea, vomiting, i nability to pass flatus/stool, bleeding, wound redness/discharge, weakness, excessively loose stool/diarrhea, or for any other reasonably worrisome symptom or concern. Soft diet, no raw vegetables, avoid high fiber foods. Colace 100mg by mouth twice to three times daily while taking narcotic pain medication. If no bowel movement in 24-48hr, may take 17g Miralax in 8oz water twice daily until bowel movement. May shower, no submersive bathing. Follow up in clinic in 2-4 weeks for wound check and staple removal. No driving while taking narcotic pain medications. Follow up with primary care provider and/or medical subspecialist following discharge as well. Complete course of antibiotics as instructed. Plan of Treatment: 1. Complete course of antibiotics for total of 10 days outpatient oral. 2. Antibiotics will be Augmentin twice daily; patient will take probiotic as well. 3. Patient to also follow-up in surgery clinic for staple removal. 4. Patient to call or return to the hospital through ER for fevers, nausea, vomiting, abdominal pain or any other worrisome symptoms or concerns. 5. Patient not to return to any work capacity until seen in clinic. No Smoking: If you smoke, Please STOP! Call for help. Follow-up with: Markos Gould MD [Provider Admit Priv/Credential] -
[2020-06-23] MEDS ORDERED: polyethylene glycoL 3350 17 GM PACKET PO SCH (21:00)
[2020-06-23] MEDS ORDERED: DOCUSATE SODIUM 100 MG CAPSULE PO SCH (21:00)
== END 2020-06-23 18:46 | disposition home or self-care (01) | DRG 395 ==
LOC: ED 20:01 → MS2 22:34 → OBSVTOIN 06-23 09:34
PROVIDERS: ADMIT Surgery; ATTEND Surgery
PROC: 0DTJ4ZZ Resection of Appendix, Percutaneous Endoscopic Approach (ICD-10-PCS; principal; 2020-06-23 07:30)
DX: K35.80 Unspecified acute appendicitis (principal); K42.9 Umbilical hernia without obstruction or gangrene
CPT/HCPCS: 36415; 44970; 74177; 80053; 81003; 83690; 83735; 84100; 85025; 87631; 96365; 96366; 96367; 96368; 96372; 96375; 96376; 99285; A9270; G0378; J0131; J0330; J2765; J7120; Q9967; 0202U; 81001; 87086; 88304

== ENCOUNTER 2021-08-18 09:40 | Emergency (ER) | payer MEDICARE ==
[2021-08-18 09:51] VITALS: BP 153/105
--- NOTE | 2021-08-18 09:51 | ED Physician Documentation ---
PD HPI ABD PAIN - Stated complaint Stated Complaint: LOWER ABD DISCOMFORT - History obtained from History obtained from: Patient - Additional information Additional information: He had an appendectomy about 14 months ago. Ever since then he has had on and off low abdominal discomfort. Is really quite mild. He states that after his surgery he went to the clinic and had reinaldo removed. States that while he was at the office a observer noted that a staple was missed but it was never addressed. I do question the above history since he had a laparoscopic appendectomy, that said the operative report says the wounds were closed with s kin reinaldo. He is not particular worse today, just felt like he had been putting off and was time to check and make sure the staple had not been left in him. Review of Systems Constitutional: denies: Fever, Chills Nose: denies: Rhinorrhea / runny nose, Congestion Throat: denies: Dental pain / toothache, Sore throat Cardiac: denies: Chest pain / pressure, Palpitations Respiratory: denies: Dyspnea, Cough PD PAST MEDICAL HISTORY - Past Medical History Cardiovascular: None Respiratory: None Neuro: None Endocrine/Autoimmune: None GI: None : Retention, Indwelling catheter HEENT: None Psych: None Musculoskeletal: None Derm: None - Past Surgical History Past Surgical History: Yes HEENT: Tonsil/Adenoidectomy - Present Medications Home Medications: Ambulatory Orders Medication Instructions Recorded Confirmed Amox/Clav 875/125 [Augmentin] 1 each PO Q12H #20 tablet 06/23/20 Docusate Sodium 100Mg Capsule 100 mg PO BID capsule 06/23/20 [Colace 100Mg Capsule] oxyCODONE [Roxicodone] 5 mg PO Q4HR PRN #20 tablet 06/23/20 polyethylene glycoL 3350 [Miralax] 17 gm PO BID packet 06/23/20 - Allergies Allergies/Adverse Reactions: Allergies Allergy/AdvReac Type Severity Reaction Status Date / Time No Known Drug Allergies Allergy Verified 08/18/21 09:48 - Social History Does the pt smoke?: No Smoking Status: Never smoker Does the pt drink ETOH?: No Does the pt have substance abuse?: No - Immunizations Immunizations are current?: No Immunizations: Other immun current - POLST Patient has POLST: No PD ED PE NORMAL - Vitals Vital signs reviewed: Yes - General General: Alert and oriented X 3, No acute distress - Abdomen Abdomen: Normal bowel sounds, Soft, Non tender - Derm Derm: Other (No staple in place on the abdominal wall) - Neuro Neuro: Alert and oriented X 3, Normal speech - Psych Psych: Normal mood, Normal affect Results - Vitals Vitals: Vital Signs - 24 hr 08/18/21 09:48 Temperature 36.7 C Heart Rate 64 Respiratory 19 Rate Blood Pressure 153/105 H O2 Saturation 99 Oxygen O2 Source Room air PD MEDICAL DECISION MAKING - ED course ED course: I recommended CT scanning, that said he did not want a scan and was really only concerned about the potential for a missed staple. I discussed with him that CT scanning had both better sensitivity and specificity for other etiologies that might cause abdominal discomfort in a 76-year-old. He declined noting that his only concern was from a staple and preferred x-ray instead. Departure - Departure Disposition: 01 Home, Self Care Clinical Impression: Abdominal discomfort, Left nephrolithiasis Condition: Good Record reviewed to determine appropriate education?: Yes Instructions: ED Abdominal Pain Unkn Cause Male Comments: X-ray shows no evidence of retained staple. Return for new or worsening symptoms. Follow-up with your primary care physician for further evaluation and treatment next week. This should include but not be limited to routine age- related evaluation such as colonoscopy and prostate exams. Discharge Date/Time: 08/18/21 10:33
--- NOTE | 2021-08-18 10:12 | XRAY Report ---
PROCEDURE: Abdomen 1 View X-Ray INDICATIONS: r/o metal fb, staple d/t discomfort TECHNIQUE: One view of the abdomen acquired. COMPARISON: CT abdomen and pelvis dated 06/22/2020 FINDINGS: Surgical changes and devices: None. Bowel: Bowel gas pattern is normal. Soft tissues: No suspicious abdominal calcifications. Visualized solid organ contours appear normal in size. Partial staghorn calculus, lower pole of left kidney. No radiopaque foreign body. Bones: No suspicious bony lesions. IMPRESSION: Partial staghorn calculus, lower pole left kidney. No radiopaque foreign body. Reviewed by: Dave Dixon MD on 08/18/2021 10:11 AM PDT Approved by: Dave Dixon MD on 08/18/2021 10:11 AM PDT Station ID: [id number]
== END 2021-08-18 10:33 | disposition home or self-care (01) ==
LOC: ED 09:40
DX: N20.0 Calculus of kidney (principal); R10.30 Lower abdominal pain, unspecified
CPT/HCPCS: 99282; 99283

== ENCOUNTER 2023-05-19 06:53 | Emergency (ER) | payer MEDICARE ==
[2023-05-19] MEDS ORDERED: SODIUM CHLORIDE 0.9% 1,000 ML IV STA (07:47)
[2023-05-19] MEDS ORDERED: ONDANSETRON 4 MG/2 ML VIAL IVP STA (07:47)
[2023-05-19] MEDS ORDERED: KETOROLAC 15 MG/ML VIAL IVP STA (07:47)
[2023-05-19] MEDS ORDERED: MORPHINE 2 MG/ML CARPUJECT IVP STA (07:48)
[2023-05-19 07:55] LABS: BASOPHILS # (AUTO) 0.1 10^3/uL (0.0-0.1); BASOPHILS % (AUTO) 0.5 %; EOSINOPHILS % (AUTO) 0.2 %; HCT - HEMATOCRIT 44.5 % (42.0-52.0); HGB - HEMOGLOBIN 14.9 g/dL (14.0-18.0); LYMPHOCYTES # (AUTO) 0.9 10^3/uL (1.5-3.5); LYMPHOCYTES % (AUTO) 8.1 %; MEAN CORPUSCULAR HEMOGLOBIN 31.7 pg (27.0-31.0); MEAN CORPUSCULAR HGB CONC 33.5 g/dL (32.0-36.0); MEAN CORPUSCULAR VOLUME 94.7 fL (80.0-94.0); MEAN PLATELET VOLUME 11.2 fL (7.4-11.4); MONOCYTES # (AUTO) 0.8 10^3/uL (0.0-1.0); MONOCYTES % (AUTO) 7.2 %; NEUTROPHILS # (AUTO) 9.2 10^3/uL (1.5-6.6); NEUTROPHILS % (AUTO) 83.5 %; PLT - PLATELET COUNT 168 10^3/uL (130-450); RED CELL DISTRIBUTION WIDTH 11.9 % (12.0-15.0); WHITE BLOOD COUNT 11.1 x10^3/uL (4.8-10.8)
--- NOTE | 2023-05-19 08:16 | ED Physician Documentation ---
PD HPI ABD PAIN - Stated complaint Stated Complaint: LT SIDE PX - Chief complaint Chief Complaint: Abd Pain - History obtained from History obtained from: Patient - Additional information Additional information: Patient is a 78-year-old male presenting for evaluation of left sided abdominal pain that woke him up abruptly at 5:00 this morning that feels sharp with associated nausea and vomiting. Pain does radiate towards his back. Denies history of known kidney stones. No dysuria or hematuria. No fever, chest pain, shortness of air. Denies history of prior kidney stones. Review of Systems Constitutional: denies: Fever Cardiac: denies: Chest pain / pressure Respiratory: denies: Dyspnea GI: reports: Nausea, Vomiting. denies: Abdominal Pain : denies: Dysuria PD PAST MEDICAL HISTORY - Past Medical History Cardiovascular: None Respiratory: None Neuro: None Endocrine/Autoimmune: None GI: None : Retention, Indwelling catheter HEENT: None Psych: None Musculoskeletal: None Derm: None - Past Surgical History Past Surgical History: Yes HEENT: Tonsil/Adenoidectomy - Present Medications Home Medications: Ambulatory Orders Medication Instructions Recorded Confirmed Amox/Clav 875/125 [Augmentin] 1 each PO Q12H #20 tablet 06/23/20 Docusate Sodium 100Mg Capsule 100 mg PO BID capsule 06/23/20 [Colace 100Mg Capsule] oxyCODONE [Roxicodone] 5 mg PO Q4HR PRN #20 tablet 06/23/20 polyethylene glycoL 3350 [Miralax] 17 gm PO BID packet 06/23/20 Ondansetron Odt [Zofran] 4 mg TL Q6H PRN #12 tablet 05/19/23 Oxycodone HCl/Acetaminophen 1 each PO Q6H PRN #14 tablet 05/19/23 [Percocet 5-325 mg Tablet] Tamsulosin [Flomax] 0.4 mg PO DAILY #14 cap 05/19/23 - Allergies Allergies/Adverse Reactions: Allergies Allergy/AdvReac Type Severity Reaction Status Date / Time No Known Drug Allergies Allergy Verified 08/18/21 09:48 - Social History Does the pt smoke?: No Smoking Status: Never smoker Does the pt drink ETOH?: No Does the pt have substance abuse?: No - Immunizations Immunizations are current?: No Immunizations: Other immun current - POLST Patient has POLST: No PD ED PE NORMAL - General General: Alert and oriented X 3, No acute distress, Well developed/nourished - HEENT HEENT: Atraumatic, Moist mucous membranes, Pharynx benign - Neck Neck: Supple, no meningeal sign - Cardiac Cardiac: RRR, Strong equal pulses - Respiratory Respiratory: No respiratory distress, Clear bilaterally - Abdomen Abdomen: Normal bowel sounds, Soft, Non tender, Non distended - Back Back: No: No CVA TTP - Derm Derm: Warm and dry - Neuro Neuro: Normal speech Results - Vitals Vitals: Vital Signs - 24 hr 05/19/23 05/19/23 05/19/23 07:17 10:05 11:01 Temperature 36.7 C 37.0 C 36.9 C Heart Rate 90 69 73 Respiratory 20 18 18 Rate Blood Pressure 143/95 H 123/70 124/59 L O2 Saturation 99 97 100 Oxygen O2 Source Room air - Labs Labs: Laboratory Tests 05/19/23 05/19/23 05/19/23 07:49 07:49 09:55 WBC 11.1 H RBC 4.70 Hgb 14.9 Hct 44.5 MCV 94.7 H MCH 31.7 H MCHC 33.5 RDW 11.9 L Plt Count 168 MPV 11.2 Neut # (Auto) 9.2 H Lymph # (Auto) 0.9 L [place] # (Auto) 0.8 Eos # (Auto) 0.0 Baso # (Auto) 0.1 Absolute Nucleated RBC 0.00 Nucleated RBC % 0.0 Sodium 143 Potassium 3.7 Chloride 104 Carbon Dioxide 29 Anion Gap 10.0 BUN 15 Creatinine 1.0 Estimated GFR (MDRD) 72 L Glucose 165 H Calcium 9.2 Total Bilirubin 0.9 AST 14 ALT 12 Alkaline Phosphatase 99 Total Protein 6.7 Albumin 4.2 Globulin 2.5 Albumin/Globulin Ratio 1.7 Lipase < 10 L Urine Color DARK YELLOW Urine Clarity SL. CLOUDY Urine pH 5.5 Ur Specific [place] >=1.030 H Urine Protein NEGATIVE Urine Glucose (UA) NEGATIVE Urine Ketones 15 H Urine Occult Blood LARGE H Urine Nitrite NEGATIVE Urine Bilirubin NEGATIVE Urine Urobilinogen 0.2 (NORMAL) Ur Leukocyte Esterase NEGATIVE Urine RBC 11-25 H Urine WBC 0-3 Ur Squamous Epith Cells RARE Squamous Urine Bacteria None Seen Ur Microscopic Review INDICATED Urine Culture Comments NOT INDICATED PD Medical Decision Making - ED course Complexity details: reviewed results, re-evaluated patient, d/w patient, d/w family ED course: Patient is a 78-year-old male with left flank pain starting abruptly this morning with associated nausea and vomiting. CBC and chemistry were obtained and reviewed without significant findings. Urinalysis is negative for infection. CT scan demonstrates an 8 mm left proximal stone. Patient does not appear septic. He is feeling better after IV fluids, Zofran and morphine. With pain controlled. Reviewed CT results with patient as well as treatment recommendations and need for close follow-up given the size of his stone. His pain is adequately controlled here and again he does not show signs of infection. Patient counseled regarding treatment plan, need for follow-up as well as concerning symptoms to return for. Departure - Departure Disposition: 01 Home, Self Care Clinical Impression: Left ureteral stone Condition: Stable Instructions: ED Stone Renal W Colic Follow-Up: Jese Choi MD [Provider Admit Priv/Credential] - Prescriptions: Tamsulosin [Flomax] 0.4 mg PO DAILY #14 cap Oxycodone HCl/Acetaminophen [Percocet 5-325 mg Tablet] 1 each PO Q6H PRN #14 tablet PRN Reason: pain Ondansetron Odt [Zofran] 4 mg TL Q6H PRN #12 tablet PRN Reason: Nausea / Vomiting Comments: You have an 8 mm stone in the ureter which is the tube that connects the kidney to the bladder. This is a fairly large size stone and you may need a procedure to help you pass the stone. I have listed the information for Dr. Choi who is a local urologist. I would recommend calling his office next May 22 for follow-up. Your CT scan also shows another large stone inside the left kidney which is not causing any issues at this time. I have sent prescriptions to help you with your symptoms as well as passing the stone [facility] in [place]. If at anytime you have worsening symptoms such as uncontrolled pain, vomiting, fever then please return to the emergency department. I am prescribing a short course of narcotic pain medication for you. These are potentially dangerous and addictive medications that should be used carefully. These medications may constipate you. Take an [id number] stool softener (d ocusate) twice daily with plenty of water while taking these medications. If you go 24 hours without a bowel movement, take [id number] miralax, per package instructions. Do not drink or drive while taking these medications. If you received narcotic or sedating medications while in the emergency department, do not drive for 24 hours. Store this medication in a safe, secure place and out of reach of children. It is a violation of federal law to give or sell this medication to another person or to use in a manner other than prescribed. The ED will not refill narcotic prescriptions, including prescriptions lost or stolen. To dispose of unwanted medications: 1. [facility] [address] in [place] has a medication drop box. They accept prescription medications (in pill form) Sunday through Sunday 9:00 a.m. to 5:00 p.m. 2. [facility], [place] [employer] accepts prescription medications (in pill form only) for disposal year round. Call for more information. 3. Contact the [facility] for the next [employer] sponsored prescription drug collection event. , [phone], or x [phone]; Note that many narcotic pain relievers also contain Tylenol/acetaminophen. Please ensure that your total dose of acetaminophen from all sources does not exceed 3 g (3000 mg) per day. Forms: PCP List Discharge Date/Time: 05/19/23 11:08
[2023-05-19 08:20] LABS: ALBUMIN 4.2 g/dL (3.2-5.5); ALBUMIN/GLOBULIN RATIO 1.7 (1.0-2.2); ALKALINE PHOSPHATASE 99 IU/L (42-121); ALT ALANINE AMINOTRANSFERASE 12 IU/L (10-60); AST ASPARTATE AMINOTRANSFERASE 14 IU/L (10-42); BILIRUBIN,TOTAL 0.9 mg/dL (0.2-1.0); BUN - BLOOD UREA NITROGEN 15 mg/dL (6-20); CALCIUM 9.2 mg/dL (8.5-10.3); CARBON DIOXIDE - CO2 29 mmol/L (21-32); CHLORIDE 104 mmol/L (101-111); GFR - MDRD 72 (>89); GLUCOSE 165 mg/dL (74-104); POTASSIUM 3.7 mmol/L (3.5-4.5); SODIUM 143 mmol/L (135-145); TOTAL PROTEIN 6.7 g/dL (6.4-8.9)
[2023-05-19 08:55] LABS: LIPASE < 10 U/L (11-82)
--- NOTE | 2023-05-19 09:17 | CT Report ---
PROCEDURE: ABDOMEN/PELVIS WO INDICATIONS: L flank pain TECHNIQUE: A CT scan of the abdomen and pelvis was performed without the use of intravenous contrast. Images we re recorded and evaluated at appropriate window settings. Reformats: coronal and sagittal. For radiat ion dose reduction, the following was used: automated exposure control, adjustment of mA and/or kV ac cording to patient size. COMPARISON: None. FINDINGS: Image quality: Excellent. Lung bases and heart: Small hiatal hernia. Liver: No solid mass. Gallbladder and biliary tree: No radiopaque stones or wall thickening. No biliary dilation. Spleen: No splenomegaly. Pancreas: No pancreatic ductal dilation. Adrenals: No adrenal nodule. Kidneys and ureters: Obstructing 8 mm stone in the proximal right ureter ([address] unit), resu lting in moderate hydronephrosis and perinephric fat stranding. Additional nonobstructing 1.2 cm ston e in the inferior calyx of the left kidney (894 [address]oun[address] unit). Bowel and peritoneum: No bowel distension. No pathologic free fluid. Appendectomy. Lymph nodes: No central or retroperitoneal adenopathy. Vessels: No infrarenal aortic aneurysm. PELVIS Reproductive organs: Unremarkable. Bladder: No wall thickness, accounting for underdistention. Pelvic lymph nodes: No pelvic adenopathy by size criteria. Bones: No aggressive osseous abnormality. Other: No significant ventral or inguinal hernia. IMPRESSION: Obstructing 8 mm stone in the proximal left ureter, resulting in moderate upstream hydronephrosis and perinephric fat stranding. Reviewed by: Seymour Geiger MD on 05/19/2023 9:16 AM [facility] Approved by: Seymour Geiger MD on 05/19/2023 9:16 AM PST Station ID: [id number]
[2023-05-19 10:08] LABS: BILIRUBIN,URINE NEGATIVE (NEGATIVE); GLUCOSE, URINE (UA) NEGATIVE (NEGATIVE); KETONES,URINE (UA) 15 mg/dL (NEGATIVE); LEUKOCYTE ESTERASE, URINE NEGATIVE (NEGATIVE); NITRITE,URINE NEGATIVE (NEGATIVE); OCCULT BLOOD,URINE LARGE (NEGATIVE); PH,URINE 5.5 PH (5.0-7.5); PROTEIN,URINE NEGATIVE (NEGATIVE); UROBILINOGEN,URINE 0.2 (NORMAL) E.U./dL (NORMAL)
[2023-05-19 10:23] LABS: CLARITY,URINE SL. CLOUDY (CLEAR)
[2023-05-19 10:26] LABS: BACTERIA,URINE None Seen /HPF (None Seen); SQUAMOUS EPITHELIAL CELL,UR RARE Squamous (<= Few); WBC,URINE 0-3 /HPF (0-3)
[2023-05-19 11:08] VITALS: BP 124/59; O2SAT 100
== END 2023-05-19 11:08 | disposition home or self-care (01) ==
LOC: ED 06:53
DX: N13.2 Hydronephrosis with renal and ureteral calculous obstruction (principal)
CPT/HCPCS: 36415; 80053; 81001; 81003; 83690; 85025; 87086; 96374; 99284